=== PATIENT | female | born 1955 | race Caucasian/White ===

== ENCOUNTER 2024-01-28 07:00 | Day surgery (SDC) | payer MEDICARE, BC, SELFPAY ==
[2024-01-28] MEDS: SODIUM CHLORIDE 0.9 % (FLUSH) 10 ML SYRINGE IVF (07:29)
[2024-01-28 07:30] VITALS: BP 129/80; PULSE 62; RESP 16; TEMP 36.6; O2SAT 98; BMI 21.4
--- NOTE | 2024-01-28 07:53 | CRLHL7_ITS ---
For Patients: As a result of the Century Cures Act, medical imaging exams and procedure reports are released immediately into your electronic medical record. You may view this report before your referring provider. If you have questions, please contact your health care provider. Indication: INTRAOP EXOSTECTOMY EXAM Technique: One fluoroscopic image of the right lateral foot. Fluoroscopic time 1.9 seconds. IMPRESSION: Fluoroscopic guidance for exostectomy. Dictated by Colby Zacarias MD @ 01/28/2024 9:11:58 AM (Electronically Signed)
[2024-01-28] MEDS: CEFAZOLIN 2 GM INJ IVP (08:22)
[2024-01-28] MEDS: BUPIVACAINE 0.25% 30 ML 10 ML INJECTION (08:29)
--- NOTE | 2024-01-28 09:11 | W.ANESCHARGE ---
Anesthesia Charges Start Date/Time Anesthesia Start Date: 01/28/24 Anesthesia Start Time: 08:21 Stop Date/Time Anesthesia Stop Date: 01/28/24 Anesthesia Stop Time: 09:11
[2024-01-28 09:13] VITALS: BP 117/55; PULSE 62; RESP 16; TEMP 36.4; O2SAT 100
[2024-01-28 09:30] VITALS: BP 125/74; PULSE 49; RESP 16; O2SAT 100
[2024-01-28 09:45] VITALS: BP 123/74; PULSE 55; RESP 16; O2SAT 99
--- NOTE | 2024-01-28 09:50 | W.ANESCHARGE ---
Anesthesia Charges Start Date/Time Anesthesia Start Date: 01/28/24 Anesthesia Start Time: 08:21 Stop Date/Time Anesthesia Stop Date: 01/28/24 Anesthesia Stop Time: 09:11
--- NOTE | 2024-01-30 13:23 | W.PM.PODPROC ---
Date of Procedure: 01/28/24 Surgeon: Desiree Garcia DPM Co-Surgeon: Mateo Donovan Pre-op Diagnosis: 1. Exostosis proximal phalanx right 5th dig 2. Exostosis distal phalanx right 5th dig Post-op Diagnosis: 1. Exostosis proximal phalanx right 5th dig 2. Exostosis distal phalanx right 5th dig Type of Procedure: 1. Exostectomy proximal phalanx right 5th dig 2. Exostectomy distal phalanx right 5th dig Procedure Description: The patient was brought from the preoperative holding area to the operating room, and placed on the operating room table in the supine positions. At this time, a timeout was performed by the attending physician and operating room staff to identify the proper patient, site and operation to be performed. A well padded pneumatic ankle tourniquet was applied to the patient's R ankle. A preoperative injection of 10 cc of a 0.25% Marcaine plain was administered in a reverse Arauz block type fashion? to the patient's R foot. The R foot was then scrubbed, prepped and draped in the normal sterile fashion. The R lower extremity was elevated for exsanguination, and the pneumatic ankle tourniquet was inflated to a level of 250 millimeters of mercury. Attention was then directed to the dorsal aspect of the R foot where an incision was made over the lateral 5th digit. The soft tissues were carefully dissected to expose the lateral aspects of the proximal phalanx and distal phalanx. Using a rongure and a saw, the exostosis on the lateral head of the proximal phalanx and the lateral base of the distal phalanx were carefully excised. The bone surfaces were smoothed to ensure no residual bony prominence remained that could cause irritation or discomfort. This was confirmed under radiographic imaging. Hemostasis was achieved with the use of electrocautery. The wound was irrigated thoroughly with sterile saline. Deep tissues were re-approximated with a 3-0 Vicryl. Skin was re-approximated with a 4-0 Nylon. A postoperative dressing of xeroform, gauze, Kerlix, 4 x 4's, and an coban bandage was applied to the patient's R foot. Upon release of the pneumatic ankle tourniquet, immediate reperfusion of toes 1 through 5 was noted. The patient was transferred from the operating room to the post anesthesia care unit with vital signs stable and vascular status intact to the R lower extremity. The patient appeared to tolerate both the procedure and anesthesia well.? Anesthesia: MAC and local Hemostasis: ankle (20min ) Estimated blood loss (mL): 5 Implants: none Specimens: none sent Disposition: same day
== END 2024-01-28 10:01 | disposition home or self-care (01) ==
PROVIDERS: PCP Internal Medicine; Visit Provider Podiatrist
PROC: (CPT 28288; principal; 2024-01-28 08:30)
DX: M89.8X7 Other specified disorders of bone, ankle and foot (principal)
CPT/HCPCS: 28108 ×2; 01480; 73620; 76000; J0665; J0690; J2250; J2405; J2704; J3010